=== PATIENT | female | born 1990 | race Caucasian/White ===

== ENCOUNTER 2018-12-27 02:41 | Emergency (ER) | payer OTHER ==
[~2018-12-27] VITALS: Ht 160 cm; Wt 55.0 kg
[2018-12-27 02:44] VITALS: BP 136/88; PULSE 90; RESP 16; Ht 160 cm; Wt 55.0 kg
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
== END 2018-12-27 02:54 | disposition home or self-care (01) ==
LOC: E/R 02:41
DX: Z02.89 Encounter for other administrative examinations (principal)
CPT/HCPCS: 99283